=== PATIENT | male | born 1995 | race Caucasian/White ===

== ENCOUNTER 2024-11-01 15:43 | Emergency (ER) | payer MEDICAID, SELFPAY ==
[2024-11-01 15:46] VITALS: BP 185/90
--- NOTE | 2024-11-01 16:59 | ED.GENMED ---
History of Present Illness
General
Chief Complaint: Musculo-Skeletal Complaint
Time Seen by Provider: 11/01/24 16:33
History of Present Illness
History of Present Illness:
29-year-old male presents to the emergency department for evaluation of right 1st and 2nd toe pain, states he walked into a curb while wearing flip-flops. He has a hard time walking secondary to pain. Speaks [place] and thus interpretation for visit
Review of Systems
Review of Systems
Allergies reviewed?: Yes
All Other Systems: ROS reviewed and negative except as documented in HPI and ROS
Phy Exam
Physical Exam
Physical Exam:
GEN: Well appearing, NAD, WDWN
HEENT: Oral mucosa moist, no scleral icterus
Cardiac: Regular rate
Lung: No respiratory distress, no tachypnea
MSK: Abrasion to the right great toe with mild swelling, abrasion to the right second toe midshaft with mild swelling as well, no gross deformities
Skin: Good color, no pallor or jaundice, no rashes
Neuro: AO x3, moves all extremities freely
Psych: Calm, cooperative
Course
Orders/Labs/Results
Orders:
Orders
11/01/24 15:49
Foot, Right 3 View [CR Foot - Right Min 3 Views] Urgent
Comment: attention to great and 2nd toe
Reason For Exam: walked into curb
Vital Signs
Initial and Last Documented VS:
Initial Vital Signs
Temp Pulse Resp BP Pulse Ox
98.1 F 110 18 185/90 98
11/01/24 15:46 11/01/24 15:46 11/01/24 15:46 11/01/24 15:46 11/01/24 15:46
Last Documented Vital Signs
Temp Pulse Resp BP Pulse Ox
98.1 F 88 20 136/89 99
11/01/24 15:46 11/01/24 18:15 11/01/24 18:15 11/01/24 18:15 11/01/24 18:15
MDM/Problems Addressed
MDM/Problems Addressed:
Will provide postop shoe for nondisplaced fractures and recommend outpatient podiatry follow-up
*Pulse Oximetry
SaO2: 98
Oxygen Mode of Delivery: Room air
Patient hypoxic: no
*Critical Care Note
Total Time (30-74mins, 75-104mins- exclusive of procedures): Not Applicable
ED Attending Note
-
Portions of this chart may have been created with voice recognition software.� Occasional wrong word or��sound alike� substitutions may have occurred due to the inherent limitations of voice recognition software.
Discharge Plan
Departure
Patient Disposition: Home (Routine Discharge)
Date of Disposition: 11/01/24
Time of Disposition: 17:01
Patient with high blood pressure during this ER visit?: No
Discharge Problem:
Closed fracture of right great toe, Closed fracture of second toe of right foot
Instructions: Toe Fracture ED
Prescriptions:
New
naproxen 500 mg tablet
500 mg PO BID Qty: 20 0RF
Referrals:
Palomo Montoya DPM [Active, Podiatry]
Activity Restrictions/Additional Instructions:
Suyakning yaxshi shifo topishiga ishonch hosil qilish uchun siz 2 hafta ichida kasalxona kampusining qo'shnisida joylashgan ortoped shifokoriga murojaat qilishingiz kerak juanis'fabiola. Dardingizga jose margaritazimadhuri clarkm. Og'riqni kamaytirish uchun oyoq
barmoqlariga kuniga 3 jah 20-30 daqiqa davomida muz qo'llang. Keyingi 2 hafta davomida yurish paytida poyabzaldan foydalaning, [facility] dus va uxlash uchun olib tashlashingiz mumkin.
Interventions
Interventions:
*Risk Screen - Suicide Last Done: 11/01/24 15:46
*General Assessment Last Done: 11/01/24 18:00
*Neglect/Abuse Screening Last Done: 11/01/24 15:46
*ED COVID-19 Vaccine History Last Done: 11/01/24 18:00
*Nursing Disposition Last Done: 11/01/24 18:15
ED-Musculoskeletal Assessment Last Done: 11/01/24 18:00
Discharge Date and Time
Discharge Date/Time: 11/01/24 18:23
Print Language: INDONESIAN
[2024-11-01 18:15] VITALS: BP 136/89
== END 2024-11-01 18:23 | disposition home or self-care (01) ==
LOC: EMR 15:43
PROVIDERS: EMERGENCY PHYSICIAN Emergency Medicine
DX: S92.501A Displaced unspecified fracture of right lesser toe(s), initial encounter for closed fracture (principal); X58.XXXA Exposure to other specified factors, initial encounter
CPT/HCPCS: 99283; 73630